=== PATIENT | male | born 1945 | race Caucasian/White ===

== ENCOUNTER 2017-10-11 06:58 | Day surgery (SDC) | payer BC, MEDICARE ==
[~2017-10-11 06:58] MED LIST: Dextrose 5%-0.45% NaCl 1,000 ML IV SCH; Midazolam 1 MG/ML 2 ML SDV ONE; Sodium Chloride 0.9% 10 ML Syringe FLUSH PRN; fentaNYL 100 MCG/2 ML SDV ONE
[2017-10-11] MEDS ORDERED: fentaNYL 100 MCG/2 ML SDV IV ONE ×3 (06:59→08:20)
[2017-10-11] MEDS ORDERED: Midazolam 1 MG/ML 2 ML SDV IV ONE ×4 (06:59→08:22)
--- NOTE | 2017-10-11 09:46 | OR ---
DATE: 10/11/2017 PROCEDURES PERFORMED: Esophagogastroduodenoscopy, NBI, and multiple pinch biopsies. INSTRUMENT USED: GIF-H180 Olympus video panendoscope. PREMEDICATIONS: No oral topical anesthesia used. Fentanyl 100 mcg intravenous and Versed 2 mg intravenous. Nasal O2 cannula. The procedure was done under pulse oximetry, BP recording, and cardiac nurse specialist. INDICATION: The patient with longstanding heartburn, on PPI with thrombocytopenia as well as positive FIT. Esophagogastroduodenoscopy is performed for detection of any active erosive lesions, Hanna esophagus and/or malignancy also under consideration, H. pylori status to be determined, endoscopic hemostasis therapy if needed. DESCRIPTION OF PROCEDURE: The scope was passed with ease. Adequate visualization of the esophagus was made from proximal to distal areas. No upper esophageal lesions identified. No distal esophageal stricture. No uphill or downhill esophageal varices. No Kelsi-Worthy tear. No evidence of erosive esophagitis by [place] criteria. No esophageal polyp or tumor mass identified. Z-line was seen at around 40 cm distal to the oral verge, configuration consistent with grade 1 by ZAP classification. No proximal gastric varices noted. Gastric fundus examination by retroflexion showed no malignant lesions. Gastric body folds were found to be quite prominent, but benign appearing, and also, multiple 3 to 5 mm sized polyps were noted, NBI views were obtained, multiple pinch biopsies were obtained from the prominent folds, biopsies also taken from the gastric polyps and sent for histopathology. No gastric ulcer, malignant mass, or vascular ectasia identified. Multiple pinch biopsies were taken from the gastric antrum and proximal body and sent for PyloriTek test for H. pylori and histopathology. A few scattered erosions were noted in the gastric antrum without bleeding from them. Duodenal bulb showed no ulcer. Visualized second part of the duodenum was unremarkable. No bleeding was noted from any of the visualized areas at the completion of examination. Photographs were taken of the duodenal bulb, gastric antrum and fundus, distal esophagus, as well as gastric body. IMPRESSION: 1. Gastric antral erosions. 2. Gastric polyps. The patient tolerated the procedure well. [facility] /[id number]
[2017-10-11 11:03] VITALS: BP 123/68
== END 2017-10-11 10:39 | disposition home or self-care (01) ==
LOC: DL.ENDO 06:58
PROVIDERS: ATTEND Internal Medicine Gastroenterology
DX: R12 Heartburn (principal); R19.5 Other fecal abnormalities; K29.50 Unspecified chronic gastritis without bleeding; K31.9 Disease of stomach and duodenum, unspecified; K31.7 Polyp of stomach and duodenum; I10 Essential (primary) hypertension; E11.9 Type 2 diabetes mellitus without complications; E66.09 Other obesity due to excess calories; D69.6 Thrombocytopenia, unspecified; F32.9 Major depressive disorder, single episode, unspecified; E78.5 Hyperlipidemia, unspecified; G47.33 Obstructive sleep apnea (adult) (pediatric); Z87.891 Personal history of nicotine dependence; Z79.899 Other long term (current) drug therapy; Z88.6 Allergy status to analgesic agent
CPT/HCPCS: 43239; 87077; J2250; J3010; J7042